=== PATIENT | female | born 1950 ===

== ENCOUNTER 2021-01-17 07:11 | Outpatient (CLI) | payer OTHER | END 2021-01-17 13:28 | disposition home or self-care (01) | LOC: NUCLEAR 07:11 | PROVIDERS: ATTEND Internal Medicine Cardiovascular Disease | DX: R06.00 Dyspnea, unspecified (principal); I10 Essential (primary) hypertension; R07.89 Other chest pain | CPT/HCPCS: 78452; 93017; A9500; J0153 ==